=== PATIENT | male | born 1995 | race Caucasian/White ===

== ENCOUNTER 2024-04-28 16:16 | Emergency (ER) | payer OTHER, SELFPAY ==
[2024-04-28 16:18] VITALS: BP 151/79; PULSE 73; RESP 15; TEMP 37.2; O2SAT 96
[2024-04-28 16:21] VITALS: BMI 31.1
--- NOTE | 2024-04-28 16:56 | RAD_ITS ---
INDICATION: injury EXAMINATION/TECHNIQUE: X-RAY - RIGHT XR Knee 3 Views COMPARISON: None. FINDINGS: No acute fracture or malalignment. No significant degenerative changes are seen. No joint effusion. The soft tissues are unremarkable. RAD/Knee 3 Views IMPRESSION: No acute radiographic abnormalities. Electronically Signed: Gibson Claire MD at 17:31 EDT ,
--- NOTE | 2024-04-28 17:05 | ED.VIS.FALL ---
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 Tripped falling down onto both feet. He had pain to his right knee unable to get up. There is no direct falls on the knee. Increasing swelling. Denies any allergies. No history of fractures. He states the history of back issues no surgical intervention minimize PCP. No medications given by EMS. Prior similar symptoms: No PFSH PFSH Medical History bronchoscopy to get quang out of throught Concussion Home Medications ?Medication ?Instructions ?Recorded ?Last Taken ?Type NK 11/08/18 Unknown History Allergy/AdvReac Type Severity Reaction Status Date / Time No Known Allergies Allergy Verified 04/28/24 16:18 Family History Other Breast cancer Diabetes Heart disease High cholesterol Hypertension Liver disease Melanoma Social History Smoking Status: Never smoker ROS ROS ED Constitutional Constitutional ED: Denies chills, fever(s) or sweats Eyes Eyes: Denies change in vision ENT ENT ED: Denies dysphagia or sore throat Cardiovascular Cardiovascular: Denies chest pain, leg edema, palpitations or racing heartbeat Respiratory/Chest Respiratory/Chest: Denies cough, dyspnea or dyspnea on exertion Gastrointestinal Gastrointestinal: Denies abdominal pain, diarrhea, nausea or vomiting Genitourinary Genitourinary ED: Denies dysuria, hematuria or urinary frequency Musculoskeletal Musculoskeletal: Reports extremity pain; Denies back pain or neck pain Integumentary Denies rash or wounds Neurologic Neurologic: Denies headache(s), paresthesias or weakness EXAM Physical Exam Const Vital Signs: 04/28/24 16:18 04/28/24 16:32 04/28/24 18:17 Temperature 99 F 98.0 F Temperature Source Oral Pulse Rate 73 66 Respiratory Rate 15 16 Respiratory Effort Normal Respiratory Depth Normal Respiratory Pattern Normal Blood Pressure 151/79 H 146/89 H Blood Pressure Mean 103 108 Pulse Ox 96 100 Oxygen Delivery Method Room Air Room Air Positive well nourished and well developed Constitutional Narrative: GCS 15 General Appearance ED: well developed and NAD HEENT Reports moist mucous membranes normocephalic and atraumatic Eyes EOMs intact bilaterally and conjunctivae normal General Eye ED: Yes normal appearance of both eyes Neck no lymphadenopathy and supple General: Negative for tenderness Chest Wall Chest: Negative for tenderness Resp normal respiratory effort and normal air movement Effort and Inspection: symmetric chest movement; Negative for respiratory distress Cardio regular rate, regular rhythm and no murmurs Peripheral Pulses: pulses 2+ throughout GI normal to inspection, nondistended, normoactive bowel sounds and non-tender Palpation: Negative for guarding or rebound tenderness present Back/Spine no CVA tenderness and no thoracic nor lumbar tenderness Extremity Extremity Narrative: Right lower extremity: Negative logroll. Knee extensor mechanism was intact. No defects at the quadricep tendon or patellar ligament. There is swelling ecchymosis infra patellar. Negative varus and valgus there is no deformity there is some tenderness in the proximal tibia on palpation. Skin is intact. Soft compartments. Neuro vas intact distally. Left lower extremity: Negative logroll nontender no swelling pulses intact distally. Upper extremities: Full range of motion without any tenderness. General Extremety ED: Yes edema and tenderness General Extremity: edema Neuro oriented x3 and no sensory deficits noted Sensorium / Orientation: awake and alert Skin no rashes or lesions noted and no wounds MDM MDM MDM Narrative Medical decision making narrative: Interventions / MDM: Differential diagnosis: Internal derangement right knee Diagnosis considered but do not suspect: Fracture however x-ray negative. My EKG interpretation: N/A Imaging independently reviewed and interpreted by myself: Three-view x-ray right knee: No fracture noted soft tissue swelling. External documents reviewed: N/A Test considered but not ordered:N/A ED course: Patient declines any pain medicines. X-ray right knee ordered for further evaluation. Ice was continued. X-ray negative. Knee immobilizer provided, crutches. Appropriate work restrictions were given. He will follow-up with occupational health and also given orthopedics for follow-up as an outpatient for further evaluation. No use Tylenol or Motrin as needed. All questions were answered. Re-evaluation: stable Disposition discussed with patient/family/significant other: Patient and significant other Case discussed with consulting clinician: N/A This note was generated with [employer] dictation software. It may contain incorrect words, spelling, and punctuation that were not noted in checking the note before signing. Radiography Diagnostic Testing: Clinical Impression(s) from Imaging Studies Knee X-Ray 04/28/24 16:56 IMPRESSION: No acute radiographic abnormalities. Electronically Signed: Gibson Claire MD at 17:31 EDT , Discharge Plan Triage Chief Complaint: Fall ED Provider: Anuj Diehl Dx/Rx/DC Orders Clinical Impression: Acute internal derangement of right knee, Fall, Work related injury Instructions: ED Knee Pain of Uncertain Cause, ED Knee Immobilizer Prescriptions: No Action NK Primary Care Provider: VIANCA WALSH Referrals: VIANCA WALSH [Other] Saiqb Urban DO [Med Staff - Active Staff] - 3-5 Days Activity Restrictions/Additional Instructions: Knee x-ray negative. Your quadricep patella ligaments are intact. Could be internal ligamentous injuries. Maintain knee immobilizer crutches. Use Tylenol or Motrin every 6 hours. Elevate and ice. Follow-up with Worker's Comp or Dr. Urban if allowed. Print Language: Irish Disposition Disposition: Home, Self Care Discharge Date/Time: 04/28/24 18:18
[2024-04-28 18:17] VITALS: BP 146/89; PULSE 66; RESP 16; TEMP 36.7; O2SAT 100
== END 2024-04-28 18:18 | disposition home or self-care (01) ==
PROVIDERS: Emergency Provider Emergency Medicine; Visit Provider Emergency Medicine
DX: M23.8X1 Other internal derangements of right knee (principal); W17.4XXA Fall from dock, initial encounter; Y93.89 Activity, other specified; Y99.0 Civilian activity done for income or pay
CPT/HCPCS: 73562; 99284